=== PATIENT | female | born 1950 | race Caucasian/White ===

== ENCOUNTER 2017-09-02 16:15 | Emergency (ER) | payer MEDICARE, BC ==
[~2017-09-02] VITALS: Wt 72.0 kg
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
[2017-09-02] MEDS ORDERED: [UNRECOGNIZED DRUG - REMARK] (19:29)
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
--- NOTE | 2017-09-02 20:14 | RADRPT ---
PROCEDURE: XR left Tibia and Fibula. CLINICAL INDICATION: Pain and swelling TECHNIQUE: AP and lateral views of the tibia and fibula were obtained. COMPARISON: No prior studies are available for comparison. FINDINGS: There is normal mineralization and alignment. No fracture or osseous lesion is identified. The joints are unremarkable. There are normal soft tissues without evidence of soft tissue swelling. IMPRESSION: No definite abnormalities are identified. RPTAT:AAJJ Physician José Miguel Date Time Electronically viewed and signed by Charlie Washington Physician on 09/02/2017 20:13 HUGO/
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
--- NOTE | 2017-09-02 20:15 | RADRPT ---
PROCEDURE: XR right Tibia and Fibula. CLINICAL INDICATION: Pain and swelling TECHNIQUE: AP and lateral views of the tibia and fibula were obtained. COMPARISON: No prior studies are available for comparison. FINDINGS: There is normal mineralization and alignment. There is an avulsion fracture off of the tip of the lateral malleolus with overlying soft tissue swe lling. The joints are unremarkable. No additional fractures are identified. IMPRESSION: Avulsion fracture off of the tip of the lateral malleolus with overlying soft tissue swelling. RPTAT:AAJJ Physician José Miguel Date Time Electronically viewed and signed by Charlie Washington Physician on 09/02/2017 20:14 HUGO/
--- NOTE | 2017-09-02 20:16 | RADRPT ---
PROCEDURE: XR Ankle. CLINICAL INDICATION: Right ankle pain and swelling. TECHNIQUE: Three views of the right ankle are available for review. COMPARISON: None available FINDINGS: Subtle avulsion fracture of the tip of the day. Right lateral malleolus is identified. Adjacent sign ificant lateral soft tissue swelling and edema is identified. Large Achilles and plantar calcaneal s purs are seen. The in the malleolus is intact and the distal tibia is intact. The tibiotalar joint s pace is preserved. IMPRESSION: 1. Subtle minimally displaced avulsion fracture of the distal tip of the distal right lateral malle olus with adjacent lateral soft tissue swelling and edema. RPTAT: HMJB .Ze Carroll MD, MD Date Time Electronically viewed and signed by .Ze Carroll MD, on 09/02/2017 20:15 .B/
[2017-09-02] MEDS ORDERED: ONDANSETRON (ODT) 4 MG TAB ODT STA (20:17)
[2017-09-02] MEDS ORDERED: HYDROCODONE/APAP (5/325) TAB PO ONE (20:30)
[2017-09-02 20:33] LABS: ADD UMIC YES; UR ASCORBIC ACID NEGATIVE (NEGATIVE); UR BILIRUBIN (Dip) NEGATIVE (NEGATIVE); UR BLOOD (Dip) 1+ mg/dL (NEGATIVE); UR CLARITY CLEAR (CLEAR); UR COLOR COLORLESS (YELLOW); UR GLUCOSE (Dip) NEGATIVE (NEGATIVE); UR KETONES (Dip) NEGATIVE (NEGATIVE); UR LEUKOCYTE ESTERASE (Dip) 1+ Leu/ul (NEGATIVE); UR NITRITE (Dip) NEGATIVE (NEGATIVE); UR RBC 2 /HPF (0-5); UR SPECIFIC GRAVITY (Dip) 1.003 (1.003-1.030); UR TOTAL PROTEIN (Dip) NEGATIVE (NEGATIVE); UR UROBILINOGEN (Dip) NEGATIVE (NEGATIVE)
[2017-09-02] MEDS ORDERED: HYDR-906 PO (20:52)
[2017-09-02] MEDS ORDERED: ACET500C5 PO (20:52)
[2017-09-02] MEDS ORDERED: ONDA4TAB14 PO (20:52)
[2017-09-02 21:28] VITALS: BP 120/72; PULSE 81; RESP 20; TEMP 98.8
== END 2017-09-02 21:31 | disposition home or self-care (01) ==
LOC: FTE 16:15
DX: S06.0X0A Concussion without loss of consciousness, initial encounter (principal); S20.211A Contusion of right front wall of thorax, initial encounter; S80.11XA Contusion of right lower leg, initial encounter; S80.12XA Contusion of left lower leg, initial encounter; S82.61XA Displaced fracture of lateral malleolus of right fibula, initial encounter for closed fracture; S16.1XXA Strain of muscle, fascia and tendon at neck level, initial encounter; V49.40XA Driver injured in collision with unspecified motor vehicles in traffic accident, initial encounter
CPT/HCPCS: 70450; 71010; 72125; 73590; 81001